=== PATIENT | female | born 1955 | race Caucasian/White ===

== ENCOUNTER 2018-04-25 09:15 | Emergency (ER) | payer OTHER ==
[2018-04-25 09:23] VITALS: BP 147/72; PULSE 85; TEMP 98.1; BMI 30.9
--- NOTE | 2018-04-25 10:19 | PDOC ---
History of Present Illness - General Chief Complaint: Eye Problem Stated Complaint: SENT BY PCP [facility] Time Seen by Provider: 04/25/18 09:59 History Source: Patient Exam Limitations: No Limitations - History of Present Illness Initial Comments: 04/25/18 10:17 States had onset of redness and drainage to right eye since yesterday. Was seen at an urgent care who recommended referral to emergency department for evaluation of eye and illness. Patient states woke up this morning with a stuck together with yellow drainage. Denies pain, denies any visual changes, denies any history of eye injury or illness including glaucoma. Was concerned about her diabetes and treatment. Patient states blood sugars have been normal. Timing/Duration: unsure, 24 hours Severity: mild, moderate Associated Symptoms: reports: denies symptoms Past History - Travel Traveled outside of the country in the last 30 days: No Close contact w/someone who was outside of country & ill: No - Past Medical History Allergies/Adverse Reactions: Allergies Allergy/AdvReac Type Severity Reaction Status Date / Time No Known Allergies Allergy Verified 04/25/18 09:17 Home Medications: Ambulatory Orders Atorvastatin Ca [Lipitor] 20 mg PO HS 04/25/18 Ciprofloxacin 0.3% Eye Drops [Ciloxan 0.3% Eye Drops --] 2 drop OD Q4HWA #1 bottle 04/25/18 Metformin HCl [Glucophage] 500 mg PO BID 04/25/18 COPD: No Diabetes: Yes HTN: Yes - Surgical History Cholecystectomy: Yes - Immunization History Immunization Up to Date: Yes - Suicide/Smoking/Psychosocial Hx Smoking History: Never smoked Information on smoking cessation initiated: No Hx Alcohol Use: No Drug/Substance Use Hx: No Review of Systems - Review of Systems Able to Perform ROS?: Yes Is the patient limited Indonesian proficient: Yes Constitutional: Yes: Symptoms Reported, See HPI, Malaise. No: Fever HEENTM: Yes: Symptoms Reported, See HPI, Tearing. No: Eye Pain, Blurred Vision Respiratory: Yes: See HPI. No: Symptoms reported, Cough Musculoskeletal: Yes: See HPI. No: Symptoms Reported All Other Systems: Reviewed and Negative *Physical Exam - Vital Signs Last Vital Signs Temp Pulse Resp BP Pulse Ox 98.1 F 85 18 147/72 96 04/25/18 09:18 04/25/18 09:18 04/25/18 09:18 04/25/18 09:18 04/25/18 09:18 - Physical Exam General Appearance: Yes: Nourished, Appropriately Dressed, Apparent Distress HEENT: positive: PANFILO, TMs Normal, Other (injected right eye, with tearing and yellowish drainage noted. Visual acuity is within normal limits. Is nontender and no pain with pressure pushing eye) Neck: positive: Supple. negative: Tender, Lymphadenopathy (R), Lymphadenopathy (L) Respiratory/Chest: positive: Lungs Clear Moderate Sedation - Procedure Monitoring Vital Signs: Procedure Monitoring Vital Signs Temperature 98.1 F 04/25/18 09:18 Pulse Rate 85 04/25/18 09:18 Respiratory Rate 18 04/25/18 09:18 Blood Pressure 147/72 04/25/18 09:18 O2 Sat by Pulse Oximetry (%) 96 04/25/18 09:18 Medical Decision Making - Medical Decision Making 04/25/18 10:19 Conjunctivitis, O evidence of intraocular pressure or pain, vision is within normal limits. Will treat with ciprofloxacin drops *DC/Admit/Observation/Transfer Diagnosis at time of Disposition: Conjunctivitis Qualifiers: Conjunctivitis type: acute Acute conjunctivitis type: bacterial Laterality: right Qualified Code(s): H10.31 - Unspecified acute conjunctivitis, right eye - Discharge Dispostion Disposition: HOME Condition at time of disposition: Stable Decision to Admit order: No - Prescriptions Prescriptions: Ciprofloxacin 0.3% Eye Drops [Ciloxan 0.3% Eye Drops --] 2 drop OD Q4HWA #1 bottle - Referrals Referrals: Partha Wells MD [Primary Care Provider] - - Patient Instructions Printed Discharge Instructions: DI for Conjunctivitis Additional Instructions: Rest, avoid rubbing eyes Wash hands frequently as this is very contagious Wash hands, use eye drops as directed, wash hands after use Do not share eyedrops with other person to may become infected as this will infect them Ciprofloxacin drops 2 drops to affected eye 4 times a day for 5 days Avoid contact with others until redness and discharge is gone from eyes. Followup with ophthalmology or private physician as needed - Post Discharge Activity
== END 2018-04-25 10:22 | disposition home or self-care (01) ==
LOC: JERFT 09:15
DX: H10.31 Unspecified acute conjunctivitis, right eye (principal); I10 Essential (primary) hypertension; E11.9 Type 2 diabetes mellitus without complications; Z79.84 Long term (current) use of oral hypoglycemic drugs
CPT/HCPCS: 99281-25

== ENCOUNTER 2019-05-19 16:13 | Emergency (ER) | payer OTHER ==
--- NOTE | 2019-05-19 16:20 | PDOC ---
Rapid Medical Evaluation Time Seen by Provider: 05/19/19 16:20 Medical Evaluation: Allergies Allergy/AdvReac Type Severity Reaction Status Date / Time No Known Allergies Allergy Verified 04/25/18 09:17 05/19/19 16:20 I performed a brief in-person evaluation of this patient. 64-year-old female referred by Dr. Wells after outpatient non-contrast CT chest today demonstrated multiple aortic aneurysms. Complaining of one month of SOB. No chest pain. Pertinent physical exam findings: Alert, oriented, no distress. RRR, S1/S2, soft systolic murmur. BP 183/79. I have ordered the following: EKG Cardiac labs Patient to proceed to the ED for further evaluation. Discharge Disposition - Diagnosis Shortness of breath - Referrals - Patient Instructions - Post Discharge Activity
[2019-05-19 16:25] VITALS: TEMP 97.9; BMI 32.7
[2019-05-19 16:54] LABS: BASO % 0.8 % (0-2.0); EOS % 3.7 % (0-4.5); LYMPH % 40.3 % (8-40); MCH 30.2 pg (25.7-33.7); MCHC 33.5 g/dl (32.0-36.0); MEAN CELL VOLUME 90.2 fl (80-96); MEAN PLT VOLUME 9.4 fl (7.5-11.1); MONO % 6.4 % (3.8-10.2); NEUT % 48.8 % (42.8-82.8); PLATELET COUNT 270 K/MM3 (134-434); RBC 3.99 M/mm3 (3.60-5.2); RDW 13.9 % (11.6-15.6); WHITE BLOOD COUNT 9.3 K/mm3 (4.0-10.0)
--- NOTE | 2019-05-19 17:00 | PDOC ---
History of Present Illness - General Chief Complaint: Shortness of Breath Stated Complaint: SOB Time Seen by Provider: 05/19/19 16:20 History Source: Patient Exam Limitations: No Limitations - History of Present Illness Initial Comments: 05/19/19 16:55 HPI: 64yo F PMH DM, HTN, HLD, sent in by PCP Dr. Wells for multiple saccular aneurysms on CT earlier today in setting of workup for 2 months of progressive SOB. Patient denies pain at this time, endorses some mild chest discomfort yesterday. Her primary complaint is her progressive shortness of breath. Sent by PCP for incidental aneurysm found on CT this morning after CXR demonstrated concerning mass near the heart. Denies chest pain, cough, fevers, chills, nausea, vomiting, recent illnesses, sick contact, syncope. All: NKDA Meds: per chart PMH: as above PSH: cholecystectomy, tonsils Past History - Travel Traveled outside of the country in the last 30 days: No Close contact w/someone who was outside of country & ill: No - Past Medical History Allergies/Adverse Reactions: Allergies Allergy/AdvReac Type Severity Reaction Status Date / Time No Known Allergies Allergy Verified 04/25/18 09:17 Home Medications: Ambulatory Orders Atorvastatin Ca [Lipitor] 20 mg PO HS 04/25/18 Ciprofloxacin 0.3% Eye Drops [Ciloxan 0.3% Eye Drops --] 2 drop OD Q4HWA #1 bottle 04/25/18 Metformin HCl [Glucophage] 500 mg PO BID 04/25/18 COPD: No Diabetes: Yes HTN: Yes - Surgical History Cholecystectomy: Yes - Immunization History Immunization Up to Date: Yes - Psycho Social/Smoking Cessation Hx Smoking History: Former smoker Have you smoked in the past 12 months: No Information on smoking cessation initiated: No Hx Alcohol Use: No Drug/Substance Use Hx: No Review of Systems - Review of Systems Able to Perform ROS?: Yes Is the patient limited Tuvaluan proficient: Yes Constitutional: No: Chills, Diaphoresis, Fever HEENTM: No: Recent change in vision, Nose Congestion, Throat Pain Respiratory: Yes: Shortness of Breath, SOB with Exertion. No: Cough, SOB at Rest, Wheezing, Productive cough, Hemoptysis Cardiac (ROS): No: Chest Pain, Edema, Irregular Heart Rate, Palpitations, Syncope, Chest Tightness ABD/GI: No: Constipated, Diarrhea, Nausea, Vomiting : No: Dysuria, Discharge, Frequency Musculoskeletal: No: Muscle Pain, Muscle Weakness, Neck Pain Integumentary: No: Erythema, Pallor, Rash Neurological: No: Headache, Numbness, Tingling, Weakness Psychiatric: No: Stressors, Change in Appetite Endocrine: No: Increased Thirst, Increased Urine, Change in Weight Hematologic/Lymphatic: No: Anemia, Blood Clots, Easy Bleeding All Other Systems: Reviewed and Negative *Physical Exam - Vital Signs Last Vital Signs Temp Pulse Resp BP Pulse Ox 97.9 F 72 16 183/79 H 99 05/19/19 16:22 05/19/19 16:22 05/19/19 16:22 05/19/19 16:22 05/19/19 16:22 - Physical Exam 05/19/19 18:56 Vitals reviewed, AFVSS, hypertensive to 180 sbp GEN: Well appearing, appears stated age, NAD, comfortable. AAOx3. HEENT: NCAT, EOMI, PERRL. Sclera anicteric, noninjected. No facial asymmetry. Moist mucous membranes. Normal voice. Trachea midline. CV: RRR, S1/S2, no murmurs / rubs / gallops appreciated. LUNG: CTAB, normal work of breathing. No wheezes, rales, rhonchi. No cough. Speaking full sentences. GI: Soft, NTND, no guarding, no rebound. No masses / pulsations. Neg CVAT b/l. EXTREMITIES: 2+ distal pulses. No LE edema. No obvious deformities of all extremities. SKIN: Warm, dry, no rashes appreciated, non-jaundiced. PSYCH: Normal mood and affect. Cooperative and appropriate. NEURO: CN grossly intact. Moving all extremities well. Normal strength and sensation grossly. ED Treatment Course - LABORATORY CBC & Chemistry Diagram: 05/19/19 16:40 05/19/19 16:40 Medical Decision Making - Medical Decision Making 05/19/19 17:22 64yo F PMH DM, HTN, HLD, sent in by PCP Dr. Wells for multiple incidental saccular aneurysms on CT earlier today in setting of workup for 2 months of progressive SOB. Patient for CTA and possible transfer with CT surgical evaluation. Spoke with Dr. Wells, concern for aneurysm, sent for CTA. - CBC, CMP, Coags, T&S - CTA Chest/Abd/Pelvis 05/19/19 17:55 - Taken to CT on phototypesetting equipment monitor by myself - PT GFR noted to be 33, Cr 1.6 - CTA still medically necessary given urgency of possible dissecting aneurysm - Patient consentable, knows risks and benefits 05/19/19 18:30 - CTA done, pending read - Patient asymptomatic, anxious, eager to go home, counselled on severity of her situation - On continuous phototypesetting equipment monitor back in bed 05/19/19 19:05 -Patient endorsed to Dr. Ann, overnight resident Discharge - Discharge Information Problems reviewed: Yes Clinical Impression/Diagnosis: Shortness of breath Aortic aneurysm Qualifiers: Aortic location: thoracic aorta Presence of rupture: without rupture Qualified Code(s): I71.2 - Thoracic aortic aneurysm, without rupture Condition: Stable - Follow up/Referral - Patient Discharge Instructions - Post Discharge Activity
[2019-05-19 17:06] LABS: INR 0.87 (0.83-1.09); PROTHROMBIN TIME (PATIENT) 10.2 SEC (9.7-13.0)
[2019-05-19 17:28] LABS: ALBUMIN 3.2 g/dl (3.4-5.0); ALK PHOS 88 U/L (45-117); ANION GAP 6 MMOL/L (8-16); BILIRUBIN,TOTAL 0.2 mg/dL (0.2-1); BLOOD UREA NITROGEN 24.6 mg/dL (7-18); CALCIUM 8.8 mg/dL (8.5-10.1); CHLORIDE 107 mmol/L (98-107); CO2 25 mmol/L (21-32); CREATININE 1.6 mg/dL (0.55-1.3); GLUCOSE,RANDOM 218 mg/dL (74-106); POTASSIUM 4.6 mmol/L (3.5-5.1); SGOT/AST 21 U/L (15-37); SGPT/ALT 24 U/L (13-61); SODIUM 137 mmol/L (136-145); TOT PROT 7.9 g/dl (6.4-8.2)
[2019-05-19] MEDS ORDERED: SODIUM CHLORIDE 0.9% 1000 ML INFUS.BAG IV ONE (17:42)
--- NOTE | 2019-05-19 19:28 | PDOC ---
*Physical Exam - Vital Signs Last Vital Signs Temp Pulse Resp BP Pulse Ox 97.9 F 72 16 183/79 H 99 05/19/19 16:22 05/19/19 16:22 05/19/19 16:22 05/19/19 16:22 05/19/19 19:10 - Physical Exam General Appearance: Yes: Nourished, Appropriately Dressed. No: Apparent Distress HEENT: positive: EOMI, PANFILO, Normal ENT Inspection, Normal Voice Neck: positive: Supple Respiratory/Chest: positive: Lungs Clear Cardiovascular: positive: Regular Rhythm, Regular Rate, S1, S2 Vascular Pulses: Dorsalis-Pedis (R): 2+, Doralis-Pedis (L): 2+ Gastrointestinal/Abdominal: positive: Soft Musculoskeletal: positive: Normal Inspection Extremity: positive: Normal Capillary Refill Integumentary: positive: Normal Color Neurologic: positive: Alert ED Treatment Course - LABORATORY CBC & Chemistry Diagram: 05/19/19 16:40 05/19/19 16:40 - ADDITIONAL ORDERS Additional order review: Laboratory Results 05/19/19 05/19/19 16:40 16:40 PT with INR 10.20 INR 0.87 Sodium 137 Potassium 4.6 Chloride 107 Carbon Dioxide 25 Anion Gap 6 L BUN 24.6 H Creatinine 1.6 H Est GFR (CKD-EPI)AfAm 38.52 Est GFR (CKD-EPI)NonAf 33.23 Random Glucose 218 H Calcium 8.8 Total Bilirubin 0.2 AST 21 ALT 24 Alkaline Phosphatase 88 Creatine Kinase 104 Troponin I < 0.02 Total Protein 7.9 Albumin 3.2 L 05/19/19 16:40 RBC 3.99 MCV 90.2 MCHC 33.5 RDW 13.9 MPV 9.4 Neutrophils % 48.8 Lymphocytes % 40.3 H Monocytes % 6.4 Eosinophils % 3.7 Basophils % 0.8 - Medications Given in the ED: ED Medications Discontinued Medications Generic Name Dose Route Start Last Admin Trade Name Freq PRN Reason Stop Dose Admin Sodium Chloride 1,000 ml 05/19/19 17:42 05/19/19 19:05 Normal Saline - IV 05/19/19 17:43 1,000 ml ONCE ONE Administration Medical Decision Making - Medical Decision Making Patient signed out to me pending Ar grider for BP and transfer to [facility] - Ar grider ordered Takeda - accepting doc at [facility] - Patient left to [facility] Discharge - Discharge Information Problems reviewed: Yes Clinical Impression/Diagnosis: Shortness of breath Aortic aneurysm Qualifiers: Aortic location: thoracic aorta Presence of rupture: without rupture Qualified Code(s): I71.2 - Thoracic aortic aneurysm, without rupture Condition: Stable Disposition: TRANSFER ACUTE CARE/OTHER HOSP - Admission No - Follow up/Referral Referrals: Partha Wells MD [Primary Care Provider] - - Patient Discharge Instructions - Post Discharge Activity - Transfer to Acute Care Facility Accepting Physician:: Dr. Townsend
[2019-05-19] MEDS ORDERED: NICARDIPINE 25 MG in DEXTROSE 5%-WATER - 240 ML IVPB SCH (19:30)
[2019-05-19] MEDS ORDERED: niCARdipine HCL 25 MG/10 ML AMPUL IVPB ONE (19:41)
--- NOTE | 2019-05-19 19:48 | PDOC ---
Documentation entered by Ashvin Chávez SCRIBE, acting as scribe for Kathryn Shepherd DO. Kathryn Shepherd DO: This documentation has been prepared by the Kyler kim Daniel, SCRIBE, under my direction and personally reviewed by me in its entirety. I confirm that the documentation accurately reflects all work, treatment, procedures, and medical decision making performed by me. Attending Attestation - Resident Resident Name: BruceRonald - ED Attending Attestation I have performed the following: I have examined & evaluated the patient, The case was reviewed & discussed with the resident, I agree w/resident's findings & plan, Exceptions are as noted - HPI HPI: 05/19/19 18:48 The patient is a 64 year old female with a past medical history of diabetes, HTN , and HLD here today for evaluation of shortness of breath. The patient reports that she has had shortness of breath for 2 months which is worse with exertion and was sent in by her PCP today. As per Dr. Wells, the patient had a chest x- ray and then a chest CT which showed multiple saccular aneurysms. Patient also had chest pain yesterday which has since resolved. Patient denies headache, lightheadedness. Denies fever, chills. Denies chest pain. Denies nausea, vomiting, diarrhea, abdominal pain. Allergies: NKA PCP: Partha Wells - Physicial Exam PE: 05/19/19 19:49 Constitutional: Awake, alert, oriented. No acute distress. Head: Normocephalic. Atraumatic Eyes: PERRL. EOMI. Conjunctivae are not pale. ENT: Mucous membranes are moist and intact. Posterior pharynx without exudates or erythema. Uvula midline. Neck: Supple. Full ROM. No lymphadenopathy. Cardiovascular: Regular rate. Regular rhythm. S1, S2 regular. Distal pulses are 2+ and symmetric. Pulmonary/Chest: No evidence of respiratory distress. Clear to auscultation bilaterally No wheezing, rales or rhonchi. Abdominal: Soft and non-distended. There is no tenderness. No rebound, guarding or rigidity. No organomegaly. No palpable masses. Good bowel sounds. Back: No CVA tenderness. Musculoskeletal: No edema. No cyanosis. No clubbing. Full range of motion in all extremities. No calf tenderness. Radial/pedal pulses are intact and 2+ bilaterally Skin: Skin is warm and dry. No petechiae. No purpura. Neurological: Alert and oriented to person, place, and time. Cranial nerves II -XII are grossly intact. Normal speech. Strength is grossly symmetric. No sensory deficits. Psychiatric: Good eye contact. Normal interaction, affect and behavior. - Medical Decision Making 05/19/19 19:46 64yo female with intermittent cp/sob - especially with exertion -sent for outpt ct chest with dr. wells today -sacular aneurysm seen on dry ct -sent to er for further eval -labs and cta chest/abd/pelvis ordered -pt denies cp/sob at this time - 05/19/19 19:46 cta chest shows a large saccular aneurysm with a thrombus in it case discussed with Dr. Wells and Dr. Coleman who recommend transfer pt requesting transfer to [facility] case discussed wt Dr. hopper at [facility] who accepts pt in transfer to CTICU pending bed placement -pt signing the transfer paperwork cardene ordered for bp control pt being monitored on director of cardiac rehabilitation NPO 05/20/19 01:41 [facility] Heart Score/ECG Review - ECG Intrepretation Comment:: 05/19/19 19:48 sinus at 69, nl axis, nl inerval, no acute st/t wave findings
[2019-05-20 02:11] VITALS: BP 142/81; PULSE 75
--- NOTE | 2019-05-20 13:47 | EKG ---
Test Reason : Blood Pressure : / mmHG Vent. Rate : 069 BPM Atrial Rate : 069 BPM P-R Int : 162 ms QRS Dur : 076 ms QT Int : 416 ms P-R-T Axes : 046 -06 077 degrees QTc Int : 445 ms NORMAL SINUS RHYTHM NORMAL ECG NO PREVIOUS ECGS AVAILABLE Confirmed by SHONDA STERLING MD ([id number]) on 05/20/2019 1:47:19 PM Referred By: Confirmed By:SHONDA STERLING MD
== END 2019-05-20 02:00 | disposition short-term general hospital (02) ==
LOC: JER 16:13
PROC: 3E033GC Introduction of Other Therapeutic Substance into Peripheral Vein, Percutaneous Approach (ICD-10-PCS; principal; 2019-05-19)
DX: I71.2 Thoracic aortic aneurysm, without rupture (principal); I10 Essential (primary) hypertension; E11.9 Type 2 diabetes mellitus without complications; Z79.84 Long term (current) use of oral hypoglycemic drugs; E78.5 Hyperlipidemia, unspecified
CPT/HCPCS: 36415; 71250-TC; 71275-TC; 74174-TC; 80053; 82550; 82962; 84484; 85025; 85610; 86850; 86900; 86901; 93005; 93010; 99285-25; J7030; Q9967

== ENCOUNTER 2019-06-13 12:10 | Emergency (ER) | payer OTHER ==
[2019-06-13 12:41] VITALS: TEMP 97.8; BMI 30.7
--- NOTE | 2019-06-13 12:43 | PDOC ---
Rapid Medical Evaluation Time Seen by Provider: 06/13/19 12:40 Medical Evaluation: Allergies Allergy/AdvReac Type Severity Reaction Status Date / Time No Known Allergies Allergy Verified 04/25/18 09:17 06/13/19 12:40 This patient had rapid medical evaluation in triage cc:shortness of breath HPI:Patient sent to ed by pmd for iv lasix. As per patient md states her left left has fluid. Complaining of shortness of breath especially with exertion. PE: NAD unlabored breathing, diminished lung sound on left heart s1s2 Orders: chest xray, iv access and labs This patient will proceed to ed for further evaluation. Discharge Disposition - Diagnosis Shortness of breath - Referrals - Patient Instructions - Post Discharge Activity
--- NOTE | 2019-06-13 15:03 | PDOC ---
History of Present Illness - General Chief Complaint: Congestive Heart Failure Stated Complaint: SENT BY DR VALENCIA/ IV AND XRAY NEEDED Time Seen by Provider: 06/13/19 12:40 History Source: Patient Exam Limitations: No Limitations - History of Present Illness Initial Comments: 06/13/19 14:56 64 yo female pmh HTN, HLD, DM, s/p saccular aortic aneurysm repair ([facility] by Dr. Brown [phone]) (05/2019) presents to the ED from PCP Prisc[facility] for decreased breath sounds. Discussed case with PCP, states this is the first appointment since aneurysm repair, noted decreased breath sounds on the right and believes the pt requires IV lasix. Pt states she went to [facility] last week due to persistent SOB after surgery, was told these are normal post op changes and sent home. Denies any new changes or medical concerns since her visit to [facility], denies CP, back pain, abdominal pain, palpitations, changes in bowel or bladder habits, F/C/N/V Past History - Past Medical History Allergies/Adverse Reactions: Allergies Allergy/AdvReac Type Severity Reaction Status Date / Time No Known Allergies Allergy Verified 04/25/18 09:17 Home Medications: Ambulatory Orders Atenolol [Tenormin -] 50 mg PO DAILY 05/25/19 Glipizide [Glucotrol] 10 mg PO DAILY 05/25/19 Metformin HCl [Glucophage] 1,000 mg PO DAILY 05/25/19 COPD: No Diabetes: Yes HTN: Yes - Surgical History Cholecystectomy: Yes - Immunization History Immunization Up to Date: Yes - Psycho Social/Smoking Cessation Hx Smoking History: Never smoked Have you smoked in the past 12 months: No Hx Alcohol Use: No Drug/Substance Use Hx: No Review of Systems - Review of Systems Constitutional: Yes: See HPI HEENTM: Yes: See HPI Respiratory: Yes: See HPI Cardiac (ROS): Yes: See HPI ABD/GI: Yes: See HPI : Yes: See HPI Musculoskeletal: Yes: See HPI Integumentary: Yes: See HPI Neurological: Yes: See HPI *Physical Exam - Vital Signs Last Vital Signs Temp Pulse Resp BP Pulse Ox 97.8 F 79 18 114/55 L 97 06/13/19 12:38 06/13/19 12:38 06/13/19 12:38 06/13/19 12:38 06/13/19 12:38 - Physical Exam General Appearance: Yes: Nourished, Appropriately Dressed. No: Apparent Distress HEENT: positive: EOMI Neck: positive: Supple. negative: Carotid bruit Respiratory/Chest: positive: Decreased Breath Sounds (bilaterally). negative: Respiratory Distress, Accessory Muscle Use, Rapid RR, Crackles, Rales, Rhonchi, Stridor, Wheezing Cardiovascular: positive: Regular Rhythm, Regular Rate, S1, S2, Edema (since Surgery pt had diffuse edema, treated with lasix). negative: JVD, Murmur Vascular Pulses: Dorsalis-Pedis (R): 3+, Doralis-Pedis (L): 3+ Gastrointestinal/Abdominal: positive: Flat, Soft. negative: Pulsatile Mass, Distended, Guarding, Rebound, Tenderness Musculoskeletal: negative: CVA Tenderness Extremity: positive: Normal Capillary Refill Integumentary: positive: Normal Color, Dry, Warm Neurologic: positive: Fully Oriented, Alert, Normal Mood/Affect, Normal Response , Motor Strength /5 ED Treatment Course - LABORATORY CBC & Chemistry Diagram: 06/13/19 15:20 06/13/19 15:20 - RADIOLOGY Radiology Studies Ordered: Category Date Time Status CHEST X-RAY PORTABLE* [RAD] Stat Radiology 06/13/19 13:44 Completed Medical Decision Making - Medical Decision Making 06/13/19 15:03 64 yo female pmh HTN, HLD, DM, s/p saccular aortic aneurysm repair ([facility] by Dr. Brown [phone]) (05/2019) presents to the ED from PCP [facility] for decreased breath sounds. Discussed case with PCP, states this is the first appointment since aneurysm repair, noted decreased breath sounds on the right and believes the pt requires IV lasix. Pt states she went to [facility] last week due to persistent SOB after surgery, was told these are normal post op changes and sent home. Denies any new changes or medical concerns since her visit to [facility], denies CP, back pain, abdominal pain, palpitations, changes in bowel or bladder habits, F/C/N/V Vitals WNL Decreased breath sounds noted bilaterally, CXR shows bilateral pleural effusions and dilated aortic knob Will do CT chest with contrast due to abnormal appearance and discuss with Cardio thoracic team at [facility] 06/13/19 15:[address] IV in pt, she will not tolerate the tourniquet and requests multiple breaks. Pending labs and CT Pt states she will leave against medical advice due to no assistance with attempting to use the bathroom The patient is clinically not intoxicated, free from distracting pain, appears to have intact insight, judgment and reason and in my medical opinion has the capacity to make decisions. The patient is also not under any duress to leave the hospital. In this scenario, it would be battery to subject a patient to treatment against his/her will. I have voiced my concerns for the patient's health given that a full evaluation and treatment had not occurred. I have discussed the need for continued evaluation to determine if their symptoms are caused by a condition that present risk of or morbidity. Risks including but not limited to , permanent disability, prolonged hospitalization, prolonged illness, were discussed. I tried offering alternative options in hopes that the patient might be amenable to partial evaluation and treatment which would be medically beneficial to the patient, though the patient declined my options and insisted on leaving. Because I have been unable to convince the patient to stay, I answered all of their questions about their condition and asked them to return to the ED as soon as possible to complete their evaluation , especially if their symptoms worsen or do not improve. I emphasized that leaving against medical advice does not preclude returning here for further evaluation. I asked the patient to return if they change their mind about the further evaluation and treatment. I strongly encouraged the patient to return to this Emergency Department or any Emergency Department at any time, particularly with worsening symptoms. Pt signed AMA form and departed the ED Discharge - Discharge Information Problems reviewed: Yes Clinical Impression/Diagnosis: Shortness of breath Disposition: AGAINST MEDICAL ADVICE - Follow up/Referral Referrals: Partha Valencia MD [Primary Care Provider] - - Patient Discharge Instructions - Post Discharge Activity
[2019-06-13] MEDS ORDERED: FUROSEMIDE 40 MG/4 ML INJECTABLE VIAL IVPUSH ONE (15:10)
[2019-06-13] MEDS ORDERED: FUROSEMIDE 40 MG/4 ML INJECTABLE VIAL ONE (15:15)
[2019-06-13] MEDS ORDERED: ACETAMINOPHEN 1000 MG/100 ML VIAL (NON FORMULARY) IVPB ONE (15:42)
--- NOTE | 2019-06-13 15:54 | PDOC ---
Documentation entered by Amberly Vallejo SCRIBE, acting as scribe for Lior Ma MD. Lior Ma MD: This documentation has been prepared by the Genevieve kim Nirvannie, SCRIBE, under my direction and personally reviewed by me in its entirety. I confirm that the documentation accurately reflects all work, treatment, procedures, and medical decision making performed by me. Attending Attestation - Resident Resident Name: Joni Murcia - ED Attending Attestation I have performed the following: I have examined & evaluated the patient, The case was reviewed & discussed with the resident, I agree w/resident's findings & plan, Exceptions are as noted - HPI HPI: 06/13/19 14:24 The patient is a 64 year old female, with a significant past medical history of diabetes, htn and hld who presents to the emergency department with shortness of breath and bilateral lower extremity edema. As per patient, he was advised by Dr. Wells to report to the ed for iv lasix. Patient states that she had thoracic aneurysm surgery 3 weeks ago was discharged 10 days ago has been feeling mild pain and discomfort on her sternotomy scar that has been gradually improving since the surgery. The patient does endorse mild shortness of breath with exertion that is chronic for her. Patient also endorses slightly increased lower extremity edema without any discomfort. She denies any cough, fever, chills, hemoptysis, leg swelling, calf pain. Allergies: NKDA Past surgical history: cholecystectomy, tonsillectomy. Social history: Nonsmoker. Denies EtOH use and recreational drug use. Primary Care Physician: Dr. Wells - Physicial Exam PE: 06/13/19 15:48 GENERAL: The patient is awake, alert, and fully oriented, Nontoxic - in no acute distress. HEAD: Normocephalic, atraumatic. EYES: extraocular movements intact, sclera anicteric, conjunctiva clear. ENT: Normal voice, Moist mucous membranes. NECK: endaredectomy wound with candida in place no erythema, induration, warmth , fluctuance noted, there is some flaking skin apparent LUNGS: Breath sounds equal, clear to auscultation bilaterally. No wheezes, no rhonchi, no rales. HEART: Regular rate and rhythm, normal S1 and S2 without murmur, rub or gallop, sternotomy scars presents that are clean dry and intact without erythema, induration, warmth ABDOMEN: Soft, nontender, No guarding, no rebound. No CVA tenderness EXTREMITIES: Normal range of motion, +1 edema, neg homans/tenderness. NEUROLOGICAL: No facial assymetry, Normal speech, moving all 4 extremities spontaneously symmetrically PSYCH: Normal mood, normal affect. SKIN: Warm, Dry, normal turgor, - Medical Decision Making 06/13/19 13:52 Patient's only primary complaint is chronic shortness of breath, without any worsening, does endorse some mild superficial chest discomfort consistent with her open heart surgery. We will check a chest x-ray, basic labs, will give the patient some Lasix Will reassess and discuss with PMD 06/13/19 16:58 The patient's labs were reviewed The patient is electing to leave AGAINST MEDICAL ADVICE Patient's chest x-ray did have a widened mediastinum may be normal secondary to the surgery however the patient declines obtaining a CT of her chest states that she will follow-up with the PMD tomorrow and with her surgeon as scheduled. Patient is feeling otherwise well denies any current shortness of breath, chest pain, back pain, numbness, tingling, weakness. Patient understands that she may return anytime to complete her work-up
[2019-06-13] MEDS ORDERED: ACETAMINOPHEN INJECTION 100 ML IVPB ONE (16:07)
[2019-06-13 16:10] LABS: BASO % 1.2 % (0-2.0); EOS % 2.6 % (0-4.5); HEMATOCRIT 29.5 % (32.4-45.2); LYMPH % 17.8 % (8-40); MCH 30.8 pg (25.7-33.7); MCHC 33.8 g/dl (32.0-36.0); MEAN CELL VOLUME 91.1 fl (80-96); MEAN PLT VOLUME 7.4 fl (7.5-11.1); MONO % 6.7 % (3.8-10.2); NEUT % 71.7 % (42.8-82.8); PLATELET COUNT 517 K/MM3 (134-434); RBC 3.23 M/mm3 (3.60-5.2); RDW 14.5 % (11.6-15.6); WHITE BLOOD COUNT 9.8 K/mm3 (4.0-10.0)
[2019-06-13 16:42] LABS: ALBUMIN 2.6 g/dl (3.4-5.0); ALK PHOS 387 U/L (45-117); ANION GAP 8 MMOL/L (8-16); BILIRUBIN,TOTAL 0.4 mg/dL (0.2-1); BLOOD UREA NITROGEN 15.5 mg/dL (7-18); CALCIUM 8.8 mg/dL (8.5-10.1); CHLORIDE 101 mmol/L (98-107); CO2 25 mmol/L (21-32); CREATININE 1.2 mg/dL (0.55-1.3); GLUCOSE,RANDOM 99 mg/dL (74-106); POTASSIUM 4.1 mmol/L (3.5-5.1); SGOT/AST 19 U/L (15-37); SGPT/ALT 33 U/L (13-61); SODIUM 135 mmol/L (136-145); TOT PROT 7.9 g/dl (6.4-8.2)
[2019-06-13 17:05] VITALS: BP 127/75; PULSE 88
== END 2019-06-13 17:08 | disposition left against medical advice (07) ==
LOC: JER 12:10
PROC: 3E033NZ Introduction of Analgesics, Hypnotics, Sedatives into Peripheral Vein, Percutaneous Approach (ICD-10-PCS; principal; 2019-06-13)
PROC: 3E033GC Introduction of Other Therapeutic Substance into Peripheral Vein, Percutaneous Approach (ICD-10-PCS; 2019-06-13)
DX: R06.02 Shortness of breath (principal); I77.819 Aortic ectasia, unspecified site; I10 Essential (primary) hypertension; E78.5 Hyperlipidemia, unspecified; E11.9 Type 2 diabetes mellitus without complications; Z79.84 Long term (current) use of oral hypoglycemic drugs; Z86.79 Personal history of other diseases of the circulatory system; Z98.890 Other specified postprocedural states
CPT/HCPCS: 36415; 71045-TC-FY; 80053; 82550; 83880; 84484; 85025; 96374; 96375; 99285-25; J0131